=== PATIENT | female | born 1985 | race American Indian/Alaskan Native ===

== ENCOUNTER 2017-07-27 12:19 | Emergency (ER) | payer MEDICAID ==
[2017-07-27 17:56] VITALS: BP 140/99
--- NOTE | 2017-07-27 18:10 | Emergency Department Report ---
HPI - General Chief Complaint: Upper Respiratory Infection Time Seen by Provider: 07/27/17 17:53 - HPI HPI: This is a 32-year-old female presents to the emergency department from home with complaint of a one-week history of sinus pressure, sinus drainage, nasal drainage and intermittent congestion, sore throat, body aches and what she feels is flu-like symptoms. She denies any fever, cough, chest pain, nausea , vomiting. She denies any past medical history. She does not have any primary care physician at this time. She denies any tobacco abuse. She has been taking some loratadine for her symptoms without much relief. No recent travel or sick contacts at home. ED Past Medical Hx - Past Medical History Previous Medical History?: Yes Additional medical history: Vaginal delivery x 1 - Surgical History Past Surgical History?: No - Social History Smoking Status: Current Some Day Smoker Substance Use Type: Alcohol, Non Opiate Pain - Medications Home Medications: Home Medications Medication Instructions Recorded Confirmed Last Taken Type Fluticasone [Flonase] 1 spray NS QDAY #1 bottle 07/27/17 Unknown Rx Ibuprofen [Motrin 800 MG tab] 800 mg PO Q8HR PRN #20 tablet 07/27/17 Unknown Rx Sulfamethoxazole/Trimethoprim 1 each PO BID #14 tablet 07/27/17 Unknown Rx [Bactrim DS TAB] ED Review of Systems ROS: Stated complaint: NOSE & EYES HURT/EAR ACHE/NAUSEA Other details as noted in HPI Constitutional: denies: chills, fever Eyes: denies: eye pain, eye discharge, vision change ENT: ear pain, throat pain, congestion Respiratory: denies: shortness of breath, wheezing Cardiovascular: denies: chest pain, palpitations Gastrointestinal: denies: abdominal pain, nausea, diarrhea Genitourinary: denies: urgency, dysuria, discharge Musculoskeletal: denies: back pain, joint swelling, arthralgia Skin: denies: rash, lesions Neurological: denies: headache, weakness, paresthesias Physical Exam - Physical Exam Vital Signs: Vital Signs 07/27/17 07/27/17 07/27/17 12:47 17:51 17:56 Temperature 97.9 F 97.9 F Pulse Rate 81 91 H Respiratory 16 16 Rate Blood Pressure 141/98 140/99 O2 Sat by Pulse 100 100 Oximetry Physical Exam: GENERAL: The patient is well-developed well-nourished. HENT: Normocephalic. Atraumatic. Patient has moist mucous membranes. There is some cobblestoning to the posterior pharynx but no tonsillar hypertrophy, erythema or exudates. No drooling or trismus. There is boggy nasal mucosa and some rhinorrhea seen. Normal-appearing external ear canals and tympanic membranes. EYES: Extraocular motions are intact. Pupils equal reactive to light bilaterally. NECK: Supple. Trachea is midline. CHEST/LUNGS: Clear to auscultation. There is no respiratory distress noted. HEART/CARDIOVASCULAR: Regular. There is no tachycardia. There is no gallop rub or murmur. ABDOMEN: Abdomen is soft, nontender. Patient has normal bowel sounds. There is no abdominal distention. SKIN: Skin is warm and dry. NEURO: The patient is awake, alert, and oriented. The patient is cooperative. The patient has no focal neurologic deficits. The patient has normal speech. MUSCULOSKELETAL: There is no tenderness or deformity. There is no limitation range of motion. There is no evidence of acute injury. ED Course Vital Signs 07/27/17 07/27/17 07/27/17 12:47 17:51 17:56 Temperature 97.9 F 97.9 F Pulse Rate 81 91 H Respiratory 16 16 Rate Blood Pressure 141/98 140/99 O2 Sat by Pulse 100 100 Oximetry ED Medical Decision Making - Medical Decision Making 32-year-old female presents with one-week history of some upper respiratory and sinus infection type symptoms. She'll be treated with antibiotics, Flonase, and will lease picker [id number] decongestant. She is afebrile and vital signs are stable. Even if this was influenza, the patient is on the time where Tamiflu would be initiated. Antibiotics will cover her for any sinus infection , possible strep pharyngitis or a developing pneumonia. She'll be given referrals for primary care. - Differential Diagnosis influenza, strep pharyngitis, URI, sinusitis Critical Care Time: No Critical care attestation.: If time is entered above; I have spent that time in minutes in the direct care of this critically ill patient, excluding procedure time. ED Disposition Clinical Impression: Rhinorrhea Sinusitis Qualifiers: Sinusitis location: unspecified location Chronicity: unspecified Qualified Code (s): J32.9 - Chronic sinusitis, unspecified Pharyngitis Qualifiers: Pharyngitis/tonsillitis etiology: unspecified etiology Qualified Code(s): J02.9 - Acute pharyngitis, unspecified Disposition: DC- TO HOME OR SELFCARE Is pt being admited?: No Condition: Stable Instructions: Sinusitis (ED), Pharyngitis (ED) Additional Instructions: Please follow up with a primary care physician in the next few days. Return to the emergency Department with any worsening of your symptoms or any acute distress. He can take Tylenol every 4 hours and ibuprofen every 6 hours, using weight-based dosing, as needed for any fever or discomfort. Prescriptions: Fluticasone [Flonase] 1 spray NS QDAY #1 bottle Ibuprofen [Motrin 800 MG tab] 800 mg PO Q8HR PRN #20 tablet PRN Reason: Pain Sulfamethoxazole/Trimethoprim [Bactrim DS TAB] 1 each PO BID #14 tablet Referrals: PRIMARY MD BREE [Primary Care Provider] - 3-5 Days NIK AREVALO JR, MD [Staff Physician] - 3-5 Days [facility] [Outside] - 3-5 Days Time of Disposition: 18:11
== END 2017-07-27 18:17 | disposition home or self-care (01) ==
LOC: ED 12:19
DX: J32.9 Chronic sinusitis, unspecified (principal); J02.9 Acute pharyngitis, unspecified; J34.89 Other specified disorders of nose and nasal sinuses; F17.200 Nicotine dependence, unspecified, uncomplicated
CPT/HCPCS: 99282